=== PATIENT | male | born 1955 ===

== ENCOUNTER 2024-11-17 06:26 | Day surgery (SDC) | payer MEDICARE, SELFPAY | END 2024-11-17 12:09 | disposition home or self-care (01) | LOC: GI 06:26 | PROVIDERS: ATTENDING PHYSICIAN Internal Medicine Gastroenterology | DX: D12.2 Benign neoplasm of ascending colon (principal); D12.3 Benign neoplasm of transverse colon; K57.30 Diverticulosis of large intestine without perforation or abscess without bleeding; K64.9 Unspecified hemorrhoids | CPT/HCPCS: 45385; 88305 ==